=== PATIENT | female | born 1960 | race Caucasian/White ===

== ENCOUNTER 2025-06-03 15:21 | Outpatient (REF) | payer BC, SELFPAY ==
--- OUTSIDE RECORDS SUMMARY | 2024-09-16 09:00 | XMS_ITS ---
Author Organization [facility] Address [address] [place] [address] Care Team Providers Care Preschool Assistant Teacher Name Role Phone Chilango Hamilton Primary Care Provider REASON FOR VISIT EST CARE, ANXIETY/DEPRESSION Encounters Encounter Location Date Provider Diagnosis [address] [place] [address] 2024 Chilango Hamilton Plan Of Treatment No Information Progress Notes * SOCORRO GONZALES ADOB:1960 (64 yo F)Acc No.[id number]:09/16/2024 Behavioral Health Patient: Inder SOCORRO CAMILO :?CATHIE CaroPDOB:1960???Age:63 Y???Sex: FemaleDate:09/16/2024Phone:[phone]:75190 FARIHA MOLINA [facility] Subjective: * Chief Complaints: * E ST CARE, ANXIETY/DEPRESSION * Electronic signature of RAPHAEL Caro on 06/03/2025 at 08:29 AM ESTSign off status: Pending * Provider: RAPHAEL Burgos Date: 09/16/2024 Generated for Printing/Faxing/eTransmitting on:?06/03/2025 08:29 AM EST
--- OUTSIDE RECORDS SUMMARY | 2025-05-20 07:30 | XMS_ITS | Encounter Summary ---
Author Organization [facility] Address [address] [place] [address] Care Team Providers Care Accounting Administrator Name Role Phone Franklyn Jacobo DO Primary Care Provider [phone] Reason for Visit * Rehabilitation - Outpatient (Routine) - AuthorizedSpecialtyDiagnoses / ProceduresReferred By ContactReferred To ContactPhysical Therapy Diagnoses Pain in right hip Pain in left hip Procedures [place] MANUAL THERAPY TQS REGIONS EACH 15 MINUTES Franklyn Jacobo DO [address] [place] [address] Phone: tel: fax: Maria Elena Borges, PT [address] [place] [address] Phone: tel: fax: Referral IDStatusReasonStart DateExpiration DateVisits RequestedVisits [id number] Consult and Treat / Encounter Details DateTypeDepartmentCare Team (Latest Contact Info)Amdttadhkdc25/19/2025 7:30 AM ESTEvaluation [facility] [address] [place] [address] Sourav Sharif, PT [address] [place] [address] Bilateral hip pain (Primary Dx); Lumbar radiculopathy Social History Tobacco UseTypesPacks/DayYears UsedDateSmoking Tobacco: NeverSmokeless Tobacco: NeverAlcohol UseStandard Drinks/WeekCommentsDefer0 (1 standard drink = 0.6 oz pure alcohol)CommentsUnknownSex and Gender InformationValueDate Recorded Sex Assigned at BirthNot on fileLegal FowEmsxpc88/15/2023 7:40 PM EDTGender IdentityNot on fileSexual OrientationNot on filedocumented as of this encounter Progress Notes * Sourav Huynh Kole, PT - 05/20/2025 7:30 AM EST Images from the original note were not included. Time In: 7:25 AM Time Out: 8:10 AM Supervised Time: 45 min Total Time: 45 min Evaluation Time: 15 min Visit Number: 07/09 through 07/18/25 (20 max) Chief Complaint: Bilateral hip pain 2. Lumbar radiculopathy Precautions: none per patient Subjective Mechanism of injury: Pt reports having bilateral hip pain (L > R) for a few months. Had some groin pain but is not as bad now. The left hip has been worse. Has pain that runs down their left leg. Legs started feeling like they would give out over the Summer. Pt is very active. History of low back pain. Ache and throbbing pain mostly. 1 fall in the pat year and hit elbow but no injury. Fell on ice Location of Symptoms: B hips Pain level: 5/10 average, 2/10 sitting What increases symptoms: walking, stairs, prolonged sitting What decreases symptoms: rest, Aleve Pain radiates: down left posterior LE Timing of pain: continuous Numbness/tingling: denied Imaging: There is moderate narrowing of the joint spaces of the hips, left greater than right with subcortical cystic change along the acetabular roof bilaterally. This is worse on the right compared to the prior exam. The bony ring of the pelvis is intact. No fracture or dislocation. Degenerative changes are noted in the lumbar spine and sacroiliac joints. Objective Lumbar AROM: flexion: WFL extension: minimal restriction with pain L side bend: minimal restriction R side bend: minimal restriction Muscle Strength: R knee extension: 4+/5 R knee flexion: 5/5 R hip flexion: 4/5 L knee extension: 4/5 L knee flexion: 4+/5 L hip flexion: 4/5 Palpation: tenderness of L4-L5 Joint Play: hypomobile L1-S1 Muscle length: B HS: minimal restriction Special Tests: -Manual lumbar traction: no change -leg length: equal -MICHAEL: positive bilaterally in hips Prior Level of Function: Ambulation: WFL Assistive Devices: none ADLs: independent Extracurricular Activities: very active Employment: Hospice INTERVENTIONS: X 30 minutes of performance, demonstration and education of exercises for HEP. Handout provided andreviewed with the patient. Exercises included in today's exercise grid PT Assessment: Therapy Diagnosis: Bilateral hip pain and lumbar radiculopathy Functional Limitations: LEFS: 48/80 Certified Wellness Program Coordinator Goals: The patient will achieve 5/5 B LE muscle strength in order to improve ability to perform ADLs and return to PLOF 2. Patient will demonstrate proper core stabilization and strength during STS, ambulation and bed mobility 3. The patient will have decreased average pain to 2/10 or less during functional activities 4. The patient will be fully compliant with their HEP Rehab Potential: Good Plan: Pt to be seen 1-2x per week for 4-6 weeks Treatment: Therex, manual therapy, Nuero re-ed, electrical stimulation, ice, heat I hereby deem this POC medically necessary. Please sign below and fax back to the number below. Physician Signature: Date: documented in this encounter Plan of Treatment DateTypeDepartmentCare Team (Latest Contact Info)Czoibnruzxv35/04/2025 4:00 PM ESTTreatment [facility] [address] [place] [address] Basilio Fried, MECHANICAL OPERATOR 06/10/2025 7:30 AM ESTTreatment [facility] [address] [place] [address] Basilio Fried, MECHANICAL OPERATOR 06/12/2025 8:00 AM ESTTreatment [facility] [address] [place] [address] Basilio Fried, MECHANICAL OPERATOR 06/17/2025 7:30 AM ESTTreatment [facility] [address] [place] [address] Sourav Sharif, PT [address] [place] [address] documented as of this encounter Visit Diagnoses Diagnosis Bilateral hip pain- Primary Pain in joint, pelvic region and thigh Lumbar radiculopathy Thoracic or lumbosacral neuritis or radiculitis, unspecified documented in this encounter Care Teams Team MemberRelationshipSpecialtyStart DateEnd Date Franklyn Jacobo DO [address] [place] [address] PCP - GeneralInternal Medicine03/24/25documented as of this encounter
--- OUTSIDE RECORDS SUMMARY | 2025-05-23 00:08 | XMS_ITS | Continuity of Care Document ---
Author Organization [facility] Address [address] [place] [address] Phone Care Team Providers Care Printing Technician Name Role Phone Franklyn Cadet DO Primary Care Provider Jacques Bustos II, MD Attending Provider Care Teams Patient Care Team Team Status: Active Member Role/Relationship Status Dates Franklyn Cadet DO Primary Care Provider Active Visit Care Team Team Status: Inactive Member Role/Relationship Status Dates Franklyn Cadet DO Primary Care Provider Active Start: May 22, 2025 End: May 22, 2025Robtray Bustos II, MDAttlamont ProviderActiveStart: May 22, 2025 End: May 22, 2025 Chief Complaint and Reason for Visit Chief Complaint Admit Date CONSULT DR CADET SHOBHA HIP PAIN WX May 22, 2025 8:52am Reason for Visit Admit Date Primary osteoarthritis of hips, bilatera l May 22, 2025 8:52am Allergies, Adverse Reactions, Alerts Allergen Type Severity Reaction Last Updated Verified Status No Known Allergies Allergy Unknown May 22, 2025 9:12amYesActive Social History Smoking Status Status Start Date End Date Date of Observa tion Never smoked tobacco (finding) May 22, 2025 9:13am Observation Status Observation Response Date of Response Legal Sex Female (finding) Sex Assigned At BirthFemaleApril 1960 Family History Relationship Condition Age at Onset Recorded Date/T tanesha father Fibrosis of lung Unknown fatherDeceasedUnknownmotherPulmonary hypertensionUnknownDementiaUnknown HypertensionUnknownpaternal grandmotherMalignant neoplasm of ovaryUnknown maternal grandmotherSuicideUnknownbrotherSuicideUnknownmaternal grandfather History of coronary artery bypass surgeryUnknown Problems Active Problems Problem Diagnosis/Recorded Date Onset Date Stat us Other fci (current) drug therapy May 22, 2025 9:56am Unknown Active Trochanteric bursitis, right hip March 12, 2025 8:01pm Unknown Active Primary osteoarthritis of right hip March 12 8:01pm Unknown Active Screening mammogram for breast cancer January 18, 2025 2:00pm Unknown Active Menopause January 19, 2025 8:42pm Unknown Activ e Primary osteoarthritis of hi ps, bilateral May 21, 2025 2:48pm Unknown Active Wellness examination January 18, 2025 2:00pm Unknown Active Osteoporosis without current pathological fracture May 22, 2025 9:56am Unknown Active Hip pain, bilateral January 19, 2025 8:50pm Unknown Active GERD (gastroesophageal reflux disease) March 28, 2024 12:20pm Unknown Active Chest pain January 19, 2025 8:45pm Unknown Activ e IBS (irritable bowel syndrome) March 28, 2024 12 :20pm Unknown Active Inactive/Resolved Problems Problem Diagnosis/Recorded Date Onset Date Stat us Right lower quadrant pain March 23, 2025 11:49am Unknown Resolved Acute appendicitis March 23, 2025 11:49am Unknow n Resolved Acute appendicitis March 23, 2025 2:29pm Unknown Resolved Medications Medication Status Dose Units Route Directions Qty Days Refills S tart Date Stop Date End Date Reason(s) Instructions Adherence Omeprazole 40 mg capsule,delayed release(DR/EC) Discon tinued 0 .ROUTE.CTLTILB291Rquejmy 2023 1:59pmJuly 2024 1:34pmTAKE 1 CAPSULE BY MOUTH EVERY DAY 30 MIN BEFORE BREAKFAST / TAKE ON AN EMPTY STOMACH Multivitamin TmwcjnUpweicgzmczn9OYDMTPfoacEyb 2020 11:00pmSeptember 2024 10:58amSulfamethoxazole-Trimethoprim 800-160 mg hlmekyXngylbdnftzz1VTWVK DailyMay 2020 11:00pmAugust 2020 5:52amAspirin 81 mg Tablet Hiqccweyckey61LMVFPchfzCko 2020 11:00pmSeptember 2024 10:58am Metronidazole (Flagyl) 375 mg GxxxutgNeokadytuoew786UFJNBuxoh dailyMay 2020 11:00pmAugust 2020 5:52amOmega-3 Fatty Acids OvbnkpdNukvcygksjdq2901 MGPODailyAugust 2020 11:00pmSeptember 2023 9:32amOxycodone- Acetaminophen (Percocet) 5-325 mg bklmrxOcipffohiprb4UASFXR8K as needed for pain 3070September 2024November 2024 9:12amAcute appendicitis Unspecified acute appendicitisOmeprazole 40 mg capsule,delayed release(DR/EC) Scfkupgrqczt99DMLDEitvs42852Wzuwpfofq 2023 11:00pmOctober 2023 1:59pmtake on an empty stomach, 30 minutes prior to bkfst Immunizations Immunization Event Date Not Given Reason Dose Number Customer Success Director Lot Number Reason(s) Given Vaccine Information Statement (VIS) Detail Administration Location COVID-19 mRNA-1273 (Moderna) June 27, 2021 COVID-19 mRNA, Comirnaty (Pfizer)October 09OVID-19 mRNA, Comirnaty (Pfizer)October 30Tap, unspecifiedMay 2020Td(adult) unspecified formulationApril 2003Tetanus, Diphtheria adult, 5 Lf pres free absOctober 2012Tetanus, Diphtheria, Pertussis (Tdap)November [id number] Vital Signs Vital Reading Result Reference Range Collection Date/Time Height 64 [in_i] May 22, 2025 9:02yvYofchw18.37 kgMay 22, 2025 9:10amBP Cmwdqbyr530 mm[Hg]100-140May 22, 2025 9:10amBP Hupltpgbh12 mm[Hg]60-100May 22, 2025 9:10amBMI (Body Mass Index)21.7 kg/c6GeuzdnjjMay 22, 2025 9:10am Advance Directives Advance Directive Response Recorded Date/ Time Advance Directives No August 2:40pm Insurance Providers Guarantor Seda Nathan Address [address] [address]Nfkvtqd Info.Home Phone: Coverage Status Update:2025 Payer Group Member ID Coverage Type Subscriber Relationship to Subscriber Effective Date Expiration Date [employer] RIVERA/PAT [facility] Id: [id number] A Keegan Id: [id number] [address] Home Phone: Email: [email or web address] Encounters Encounter Location(s) Arrival/Admit Date Discharge/Departure Date Discharge/Departure Disposition Provider(s) Departed Physician/ Provider Office Visit -[facility] May 22, 2025 8:52am May 22, 2025 9:54am Discharged to home care or self care (routine discharge) Amina Mendoza MD Recent Diagnosis Onset Date Admit Date Primary osteoarthritis of hips, bilateral Unknow n May 22, 2025 8:52am Assessments Diagnosis Onset Date Resolution Status Admit Date Primary osteoarthritis of hips, bilatera l acuteNov2024 8:52am Plan of Treatment Future Tests Future scheduled test information is unavailable Pending Tests Test Name Ordered Date Scheduled Date Nicotine Level May 22, 2025 10:30am CotinineNov2024 10:30am Future Visits Future appointment information is unavailable Future Procedures Procedure Name Ordered Date Scheduled Date Admit Status Order March 24, 2025 5:41am S eptember 2024 5:41am Post Anesthesia Tracer order March 23 11:59am March 23, 2025 12:00pm Discharge Order March 25, 2025 7:13am Sept ember 2024 7:13am Nicotine/Cotinine Blood May 22, 2025 9:55 am May 22, 2025 10:30am Future Medications Future medication information is unavailable Patient Instructions Instruction Admit Date Know your Meds March 23, 2025 5:15pm
--- OUTSIDE RECORDS SUMMARY | 2025-05-25 17:00 | XMS_ITS | Encounter Summary ---
Author Organization [facility] Address [address] [place] [address] Care Team Providers Care Ethyl Blender Name Role Phone Franklyn Jacobo DO Primary Care Provider [phone] Reason for Visit * Rehabilitation - Outpatient (Routine) - AuthorizedSpecialtyDiagnoses / ProceduresReferred By ContactReferred To ContactPhysical Therapy Diagnoses Pain in right hip Pain in left hip Procedures [place] MANUAL THERAPY TQS REGIONS EACH 15 MINUTES Franklyn Jacobo DO [address] [place] [address] Phone: tel: fax: Maria Elena Borges, PT [address] [place] [address] Phone: tel: fax: Referral IDStatusReasonStart DateExpiration DateVisits RequestedVisits [id number] Consult and Treat / Encounter Details DateTypeDepartmentCare Team (Latest Contact Info)Nwqzgmurzum25/24/2025 5:00 PM ESTTreatment [facility] [address] [place] [address] Basilio Fried PTA Bilateral hip pain (Primary Dx); Lumbar radiculopathy Social History Tobacco UseTypesPacks/DayYears UsedDateSmoking Tobacco: NeverSmokeless Tobacco: NeverAlcohol UseStandard Drinks/WeekCommentsDefer0 (1 standard drink = 0.6 oz pure alcohol)CommentsUnknownSex and Gender InformationValueDate Recorded Sex Assigned at BirthNot on fileLegal AuoYyertp25/15/2023 7:40 PM EDTGender IdentityNot on fileSexual OrientationNot on filedocumented as of this encounter Progress Notes * Basilio Fried, EMPLOYEE DEVELOPMENT MANAGER - 05/25/2025 5:00 PM EST Images from the original note were not included. Time In: 5:05 PM Time Out: 6:08 PM Supervised Time: 48 min Total Time: 63 min Visit Number: 08/09 through 07/18/25 (20 max) Chief Complaint: Bilateral [...] of Symptoms: B hips Pain level: 5/10 pain in L hip/groin, patient notes R hip does not bother her much. Patient notes she had an appointment with Dr Olmedo and they took an X- ray of L hip, Dr suggested hip replacement.Patient notes she is going to her PCP on Sunday. Patient has not decided yet on hip replacement. Imaging: There is moderate narrowing of the joint spaces of the hips, left greater than right with subcortical cystic change along the acetabular roof bilaterally. This is worse on the right compared to the prior exam. The bony ring of the pelvis is intact. No fracture or dislocation. Degenerative changes are noted in the lumbar spine and sacroiliac joints. INTERVENTIONS: X 20 minutes of therapeutic exercises per grid X 28 minutes of manual therapy: long axis hip distraction L, belted L hip mobs, passive stretching of L hip X 15 minutes MHP to L hip in R SL PT Assessment: Performed MT: long axis hip distraction L, belted L hip mobs, passive stretching L hip. Patient notes increased weakness noted in L hip flexors. Continued with exercises per grid. Patient notes slight relief with long axis distraction. Ended session with MHP to L hip in R SL. Patient notes MHP felt good . Assess patients response at next session. Plan: Pt to be seen 1-2x per week for 4-6 weeks Treatment: Therex, manual therapy, Nuero re-ed, electrical stimulation, ice, heat Cosigned by Maria Elena Borges, PT at 05/25/2025 6:50 PM EST documented in this encounter Plan of Treatment DateTypeDepartmentCare Team (Latest Contact Info)Qlbwmtwrtvy10/04/2025 4:00 PM ESTTreatment [facility] [address] [place] [address] Basilio Fried, EMPLOYEE DEVELOPMENT MANAGER 06/10/2025 7:30 AM ESTTreatment [facility] [address] [place] [address] Basilio Fried, EMPLOYEE DEVELOPMENT MANAGER 06/12/2025 8:00 AM ESTTreatment [facility] [address] [place] [address] Basilio Fried, EMPLOYEE DEVELOPMENT MANAGER 06/17/2025 7:30 AM ESTTreatment [facility] [address] [place] [address] Sourav Sharif, PT [address] [place] [address] documented as of this encounter Visit Diagnoses Diagnosis Bilateral hip pain- Primary Pain in joint, pelvic region and thigh Lumbar radiculopathy Thoracic or lumbosacral neuritis or radiculitis, unspecified documented in this encounter Care Teams Team MemberRelationshipSpecialtyStart DateEnd Date Franklyn Jacobo, [address] [place] [address] PCP - GeneralInternal Medicine03/24/25documented as of this encounter
--- OUTSIDE RECORDS SUMMARY | 2025-05-27 15:00 | XMS_ITS | Encounter Summary ---
Author Organization [facility] Address [address] [place] [address] Care Team Providers Care Stonecutter Name Role Phone Franklyn Jacobo DO Primary Care Provider [phone] Reason for Visit * Rehabilitation - Outpatient (Routine) - AuthorizedSpecialtyDiagnoses / ProceduresReferred By ContactReferred To ContactPhysical Therapy Diagnoses Pain in right hip Pain in left hip Procedures [place] MANUAL THERAPY TQS REGIONS EACH 15 MINUTES Franklyn Jacobo DO [address] [place] [address] Phone: tel: fax: Maria Elena Borges, PT [address] [place] [address] Phone: tel: fax: Referral IDStatusReasonStart DateExpiration DateVisits RequestedVisits [id number] Consult and Treat / Encounter Details DateTypeDepartmentCare Team (Latest Contact Info)Ilqnivquzhp21/26/2025 3:00 PM ESTTreatment [facility] [address] [place] [address] Basilio Fried PTA Bilateral hip pain (Primary Dx); Lumbar radiculopathy Social History Tobacco UseTypesPacks/DayYears UsedDateSmoking Tobacco: NeverSmokeless Tobacco: NeverAlcohol UseStandard Drinks/WeekCommentsDefer0 (1 standard drink = 0.6 oz pure alcohol)CommentsUnknownSex and Gender InformationValueDate Recorded Sex Assigned at BirthNot on fileLegal SvjJflqyf40/15/2023 7:40 PM EDTGender IdentityNot on fileSexual OrientationNot on filedocumented as of this encounter Progress Notes * Basilio Fried, TREE FELLER - 05/27/2025 3:00 PM EST Images from the original note were not included. Time In: 3:00 PM Time Out: 3:55 PM Supervised Time: 40 min Total Time: 55 min Visit Number: 09/06 through 07/18/25 (20 max) Chief Complaint: Bilateral [...] Location of Symptoms: B hips Pain level: 5-6/10 pain in L hip/groin, patient notes R hip does not bother her much. Patient notespain increased today. Patient notes she was in and out of her car all day. Imaging: There is moderate narrowing of the joint spaces of the hips, left greater than right with subcortical cystic change along the acetabular roof bilaterally. This is worse on the right compared to the prior exam. The bony ring of the pelvis is intact. No fracture or dislocation. Degenerative changes are noted in the lumbar spine and sacroiliac joints. INTERVENTIONS: X 15 minutes of therapeutic exercises per grid X 25 minutes of manual therapy: long axis hip distraction L, belted L hip mobs, passive stretching of L hip X 15 minutes MHP to L hip in R SL PT Assessment: 5-6/10 pain in L hip/groin, patient notes R hip does not bother her much. Patient notes pain increased today. Patient notes she was in and out of her car all day. Continued with exercises per grid. Patient notes pain with knee to chest exercise, attempted with a ball with better tolerance. Performed MT: long axis hip distraction L, belted L hip mobs, passive stretching of L hip. Ended session with MHP to L hip in R SL. Patient notes feeling good post session. Assess patients response at next session. Plan: Pt to be seen 1-2x per week for 4-6 weeks Treatment: Therex, manual therapy, Nuero re-ed, electrical stimulation, ice, heat Cosigned by Sourav Sharif, PT at 05/27/2025 4:21 PM EST documented in this encounter Plan of Treatment DateTypeDepartmentCare Team (Latest Contact Info)Siebzsdzmqj87/04/2025 4:00 PM ESTTreatment [facility] [address] [place] [address] Basilio Fried, TREE FELLER 06/10/2025 7:30 AM ESTTreatment [facility] [address] [place] [address] Basilio Fried, TREE FELLER 06/12/2025 8:00 AM ESTTreatment [facility] [address] [place] [address] Basilio Fried, TREE FELLER 06/17/2025 7:30 AM ESTTreatment [facility] [address] [place] [address] Sourav Sharif, PT [address] [place] [address] documented as of this encounter Visit Diagnoses Diagnosis Bilateral hip pain- Primary Pain in joint, pelvic region and thigh Lumbar radiculopathy Thoracic or lumbosacral neuritis or radiculitis, unspecified documented in this encounter Care Teams Team MemberRelationshipSpecialtyStart DateEnd Date Franklyn Jacobo, [address] [place] [address] PCP - GeneralInternal Medicine03/24/25documented as of this encounter
--- OUTSIDE RECORDS SUMMARY | 2025-06-02 09:27 | XMS_ITS | Continuity of Care Document ---
Author Organization [facility] Address [address] [place] [address] Phone Care Team Providers Care Derrick Helper Name Role Phone Franklyn Jacobo DO Primary Care Provider Franklyn Jacobo DO Attending Provider [phone] Morena Hernandez DO Emergency Provider Emiliano Fairchild DO Admit Provider Emiliano Fairchild DO Attending Provider Lo Holloway CMA Attending Provider Shanona Jacques Engle II, MD Attending Provider [phone] Care Teams Patient Care Team Team Status: Active Member Role/Relationship Status Dates Franklyn Jacobo DO Primary Care Provider Active Visit Care Team Team Status: Inactive Member Role/Relationship Status Dates Franklyn Jacobo DO Primary Care Provider Active Start: March 12, 2025 End: March 12Lucila Garay ProviderActiveStart: March 12, 2025 End: March 12, 2025 Visit Care Team Team Status: Inactive Member Role/Relationship Status Dates Franklyn Jacobo DO Primary Care Provider Active Start: March 23, 2025 End: March 25Kaveh Rodriguez ProviderActiveStart: March 23, 2025 End: March 25, 2025Emiliano Fairchild DOAdmashley ProviderActiveStart: March 23, 2025 End: March 25, 2025Emiliano Fairchild DOAttending ProviderActiveStart: March 23, 2025 End: March 25, 2025 Visit Care Team Team Status: Active Member Role/Relationship Status Dates Franklyn Jacobo DO Primary Care Provider Active Start: March 27, 2025 Lo Holloway CMAAttending ProviderActiveStart: March 27, 2025 Visit Care Team Team Status: Inactive Member Role/Relationship Status Dates Franklyn Jacobo DO Primary Care Provider Active Start: May 06, 2025 End: May 06anh Jacobo DOAttending ProviderActiveStart: May 06, 2025 End: May 06, 2025 Visit Care Team Team Status: Inactive Member Role/Relationship Status Dates Franklyn Jacobo DO Primary Care Provider Active Start: May 22, 2025 End: May 22, 2025Jacques Bustos II, MDAttending ProviderActiveStart: May 22, 2025 End: May 22, 2025 Visit Care Team Team Status: Inactive Member Role/Relationship Status Dates Franklyn Jacobo DO Primary Care Provider Active Start: May 22, 2025 End: May 22, 2025Jacques Bustos II, MDAttending ProviderActiveStart: May 22, 2025 End: May 22, 2025 Patient Care Team Team Status: Inactive Member Role/Relationship Status Dates Franklyn Jacobo DO Primary Care Provider Active Start: June 02, 2025 End: June 02anh Jacobo DOAttending ProviderActiveStart: June 02, 2025 End: June 02, 2025 Chief Complaint and Reason for Visit Chief Complaint Admit Date bilateral hip pain March 12, 2025 9:12am rt lower abd pain March 23, 2025 5:15pm Amb Documentation March 27, 2025 9:37am M25.551 M25.552 May 06, 2025 1 0:24am CONSULT DR JACOBO SHOBHA HIP PAIN WX May 22, 2025 8:52am M16.0 Z79.89 M81.0 May 22, 2025 8:59am presurgical clearance June 02, 2025 1:55pm Reason for Visit Admit Date Hip pain, bilateral March 12, 2025 9:12am Primary osteoarthritis of right hip Sept ember 2024 9:12am Trochanteric bursitis, right hip Septemb er 2024 9:12am Acute appendicitis March 23, 2025 5:15pm Right lower quadrant pain March 5:15pm Primary osteoarthritis of hips, bilatera l May 22, 2025 8:52am Allergies, Adverse Reactions, Alerts Allergen Type Severity Reaction Last Updated Verified Status No Known Allergies Allergy Unknown June 02, 2025 1:56pmYesActive Social History Smoking Status Status Start Date [...] Problems Problem Diagnosis/Recorded Date Onset Date Stat Other fpc (current) drug therapy May 22, 2025 9:56am [...] Problems Problem Diagnosis/Recorded Date Onset Date Stat Right lower quadrant pain March 23, 2025 11:49am Unknown Resolved Acute appendicitis March 23, 2025 11:49am Unknow n Resolved Acute appendicitis March 23, 2025 2:29pm Unknown Resolved Medications Medication Status Dose Units Route Directions Qty Days Refills S tart Date Stop Date End Date Reason(s) Instructions Adherence Omeprazole 40 mg capsule,delayed release(DR/EC) Discon tinued 0 .ROUTE.LFMDMGD659Stwvlgj 2023 1:59pmJuly 2024 1:34pmTAKE 1 CAPSULE BY MOUTH EVERY DAY 30 MIN BEFORE BREAKFAST / TAKE ON AN EMPTY STOMACH Multivitamin CuboeuZpcyoxdarqol6INFAUBaygaLqs 2020 11:00pmSeptember 2024 10:58amSulfamethoxazole-Trimethoprim 800-160 mg paqqlcHrxyolqdugcm8KBDHP DailyMay 2020 11:00pmAugust 2020 5:52amAspirin 81 mg Tablet Thqdeeqiontf31SMRYMcisrVzf 31st, 2021 11:00pmSeptember 2024 10:58am Metronidazole (Flagyl) 375 mg WrairihXvanplozyaia368YLBZXyfdt dailyy 2020 11:00pmAugust 2020 5:52amOmega-3 Fatty Acids BrzksedUdydxpyhfnju3599 MGPODailyAugust 2020 11:00pmSeptember 2023 9:32amOxycodone- Acetaminophen (Percocet) 5-325 mg ihqgnrYpjvbsqusiqb1NFVETQ4C as needed for pain 3070September 2024November 2024 9:12amAcute appendicitis Unspecified acute appendicitisOmeprazole 40 mg capsule,delayed release(DR/EC) Yomtljkytwey04CRRXGcbvr06679Dkwekaydu 26th, 2024 11:00pmOctober 2023 1:59pmtake on an empty stomach, 30 minutes prior to bkfstNo Name (No Known Home Meds)ActiveDeavenir [facility] 20[facility] 12:00am Immunizations Immunization Event Date Not Given Reason Dose Number Production Sorter Lot Number Reason(s) Given Vaccine Information Statement (VIS) Detail Administration Location COVID-19 mRNA-1273 (Moderna) June 27, 2021 COVID-19 mRNAMira (Pfizer)October 09OVID-19 mRNAMira (Pfizer)October 30Tap, unspecifiedMay 2020Td(adult) unspecified formulationApril 2003Tetanus, Diphtheria adult, 5 Lf pres free absOctober 2012Tetanus, Diphtheria, Pertussis (Tdap)November [id number] Procedures Procedure Date Performed Status XR hips BI 4V adult May 06, 2025 10:36am c ompleted XR hip BI w PEL1V May 22, 2025 8:59am com pleted Nasal Screen MRSA/MSSA May 22, [address] abdomen pelvis w con March 23, 2025 9:0 7am completed OR Appendectomy Laparoscopic (Not Applicable) Se ptember 2024 3:30pm completed Relevant Diagnostic Tests and/or Laboratory Data Laboratory Results Test Collection Date/Time Result Date/Time Result Interpretation Reference Range Result Comment Performing Site Corrected White Blood Count March 25, 2025 4:10am March 25, 2025 4:44am 7.8 10*3/uL 3.8-11.6[facility] [id number] [address] [facility] 34718Rbvlkmaoazt WBC CountSeptember 2024 4:10amSeptember 2024 4:44am7.8 10*3/uL3.8-11.6[facility] [id number] [address] [facility] 24042Ijo Blood CountSeptember 2024 4:10amSeptember 2024 4:44am3.36 10*6/uLBelow low normal3.60-5.00[facility] [id number] [address] [facility] 85324ItdujfoklfOzcpfdhdr 2024 4:10amSeptember 2024 4:44am10.7 g/dLBelow low skuavl47.8-15.4[facility] [id number] [address] [facility] 72763QrdtmgfwkeMgxupjgg 2024 10:30amNovember 2024 11:29am12.9 g/dL11.8-15.4[facility] [id number] [address] [facility] 30168HcaicawackXzetxuzzq 2024 4:10amSeptember 2024 4:44am31.5 %Below low evvmol97.0-46.4[facility] [id number] [address] [facility] 26770Rkaa Corpuscular VolumeSeptember 2024 4:10amSeptember 2024 4:44am93.9 tN09-604XuehhetogEast [facility] [id number] [address] [facility] 50241Oeon Corpuscular HemoglobinSeptember 2024 4:10amSeptember 2024 4:44am31.9 pg24.7-34.3FF[facility] [id number] [address] [facility] 08190Tfpq Corpuscular Hemoglobin ConcentSeptember 2024 4:10am March 25, 2025 4:44am34.0 g/dL32.0-35.0[facility] [id number] [address] [facility] 60059Iog Cell Distribution WidthSeptember 2024 4:10amSeptember 2024 4:44am13.4 %11.9-15.3[facility] [id number] [address] [facility] 49029Nbwlgywq CountSeptember 2024 4:10amSeptember 2024 4:19qf724 10*3/xN958-673JebhwbqqdEast [facility] [id number] [address] [facility] 35592Baju Platelet VolumeSeptember 2024 4:10amSeptember 2024 4:44am8.4 fL6.3-10.7FF[facility] [id number] [address] [facility] 05975Pyjjhbhk Distribution WidthSeptember 2024 9:24amSeptember 2024 9:40am18.76 %0.00-20.00[facility] [id number] [address] [place] [address] 42725Lpyfpqqwnaq (%) (Auto)March 25, 2025 4:10amSeptember 2024 4:44am69.9 %.[facility] [id number] [address] [facility] 67725Wanjiafwpeh (%) (Auto)March 25, 2025 4:10a2024 4:44am21.4 %.[facility] [id number] [address] [facility] 04692Hwnqsygmj (%) (Auto)March 25, 2025 4:10a2024 4:44am7.9 %.[facility] [id number] [address] [facility] 15885Apwfpwxzxhf (%) (Auto)March 25, 2025 4:10a2024 4:44am0.5 %.[facility] [id number] [address] [facility] 02711Zgycnybus (%) (Auto)March 25, 2025 4:10a2024 4:44am0.3 %.[facility] [id number] [address] [facility] 88481Sbscubzbq RBC Relative Count (auto)March 25, 2025 4:10am March 25, 2025 4:44am0.1 /100{WBC}0-0.5[facility] [id number] [address] [facility] 62929Gxhstagcvcw # (Auto)March 25, 2025 4:10a2024 4:44am5.4 10*3/uL1.8-7.7[facility] [id number] [address] [facility] 32488Wigyiizkdjb # (Auto)March 25, 2025 4:10a2024 4:44am1.7 10*3/uL1.00-4.8[facility] [id number] [address] [facility] 87246Ozampkhfk # (Auto)March 25, 2025 4:10a2024 4:44am0.6 10*3/uL0.0-0.8[facility] [id number] [address] [facility] 23712Hwfegukuskc # (Auto)March 25, 2025 4:10a2024 4:44am0.0 10*3/uL0.0-0.45[facility] [id number] [address] [facility] 80489Xaqattrzi # (Auto)March 25, 2025 4:10amSeptember 2024 4:44am0.0 10*3/uL0.0-0.2[facility] [id number] [address] [facility] 34406Ohvqp ColorSeptember 2024 10:48amSeptember 2024 11:08amLight-yellowYellowEast [facility] Regional Hospital [facility]tr [id number] [address] [facility] 49199Mfdxi AppearanceSeptember 2024 10:48amSeptember 2024 11:08amCloudyAbnormal (applies to non-numeric results)ClearEast [facility]tr [id number] [address] [facility] 28112Ehqln Specific GravitySeptember 2024 10:48amSeptember 2024 11:08am1.042Above high normal1.001-1.030[facility] [id number] [address] [facility] 34919Dqqks pHSeptember 2024 10:48amSeptember 2024 11:08am7.05.0-9.0[facility] [id number] [address] [facility] 78815Stnhm Leukocyte EsteraseSeptember 2024 10:48amSeptember 2024 11:08amNegativeNegativeEast [facility] [id number] [address] [facility] 24766Xqfxc NitriteSeptember 2024 10:48amSeptember 2024 11:08amNegativeNegativeEast [facility] [id number] [address] [facility] 67410Omoun ProteinSeptember 2024 10:48amSeptember 2024 11:08amNegative mg/dLNegativeEast [facility] [id number] [address] [facility] 71241Scxlb Glucose (UA)March 23, 2025 10:48amSeptember 2024 11:08amNormal mg/dLNormWright-[facility] [id number] [address] [facility] 80363Szcgb KetonesSeptember 2024 10:48amSeptember 2024 11:08am1+Above high normalNegKindred [facility] [id number] [address] [facility] 85230Hvedr UrobilinogenSeptember 2024 10:48amSeptember 2024 11:08amNormal mg/dLNormWright-Patterson [facility] [id number] [address] [facility] 20772Zywsr BilirubinSeptember 2024 10:48amSeptember 2024 11:08amNegativeNegativeEast [facility] [id number] [address] [facility] 09294Osnfr Occult BloodSeptember 2024 10:48amSeptember 2024 11:08amNegativeNegativeEast [facility] [id number] [address] [facility] 94576Obytd RBCSeptember 2024 10:48amSeptember 2024 11:32iv0-6 [HPF]0-4[facility] [id number] [address] [facility] 16950Vxtcf WBCSeptember 2024 10:48amSeptember 2024 11:22ua1-3 [HPF]0-4[facility] [id number] [address] [facility] 73965Kbnqv Squamous Epithelial CellsSeptember 2024 10:48am Nitza 2024 11:29amN/AFF[facility] [id number] [address] [facility] 00662Mxvqb Amorphous CrystalsSeptember 2024 10:48amSeptember 2024 11:29am2+ [HPF][facility] [id number] [address] [facility] 80640Elypl BacteriaSeptember 2024 10:48amSeptember 2024 11:29amNone seen [HPF]None SeenEast [facility] Regional Hospital Ctr [id number] [address] [facility] 24201Jmxpb Hyaline CastsSeptember 2024 10:48amSeptember 2024 11:29amNone [LPF]0-8[facility] [id number] [address] [facility] 89470Ddrjf MucusSeptember 2024 10:48amSeptember 2024 11:29amRare [LPF][facility] [id number] [address] [facility] 91009Yxxesrg LevelSeptember 2024 9:24amSeptember 2024 10:26xt212 mg/dLAbove high dxkmat29-721IOW recommended reference rangeRandom Glucose Reference Range is dependent on time and content of last meal. Glucose of more than 200 mg/dL in a nonstressed, ambulatory subject supports the diagnosisof Diabetes Mellitus.[facility] [id number] [address] [facility] 41495Xmkfp Urea NitrogenSeptember 2024 9:24amSeptember 2024 10:04am10 mg/dL7-25[facility] [id number] [address] [facility] 76398KjwdosavthFffctxwcj 2024 9:24amSeptember 2024 10:04am0.70 mg/dL0.60-1.20[facility] [id number] [address] [facility] 44416Myazzaplp GFR (CKD-EPI)March 23, 2025 9:24amSeptember 2024 10:04am> 60.0 mL/MinEast [facility] Hospital Ctr [id number] [address] [facility] 23949Iuifdr LevelSeptember 2024 9:24amSeptember 2024 10:21ny059 mmol/LBelow low -380LvcpwuboaEast [facility] Regional Hospital [facility] [id number] [address] [facility] 67103Zkppzsmrr LevelSeptember 2024 9:24amSeptember 2024 10:04am4.0 mmol/L3.5-5.1[facility] [id number] [address] [facility] 32099Ulltriqf LevelSeptember 2024 9:24amSeptember 2024 10:20gr562 mmol/U31-195ChfxdjsbwEast [facility] [id number] [address] [facility] 78467Hlwmau Dioxide LevelSeptember 2024 9:24amSeptember 2024 10:04am27.4 mmol/L21.0-31.0[facility] [id number] [address] [facility] 07999Seydk GapSeptember 2024 9:24amSeptember 2024 10:04am9.6 mEq/L6.0-15.0[facility] [id number] [address] [facility] 96670Yfxkvcr LevelSeptember 2024 9:24amSeptember 2024 10:04am8.9 mg/dL8.6-10.3[facility] [id number] [address] [facility] 29859Nposi ProteinSeptember 2024 9:24amSeptember 2024 10:04am7.2 g/dL6.4-8.9[facility] [id number] [address] [facility] 40029NtusousQerwyiqpl 2024 9:24amSeptember 2024 10:04am 4.3 g/dL3.5-5.7[facility] [id number] [address] [facility] 20315CgnujvsXtvxwoir 2024 10:30amNovember 2024 11:46am 4.7 g/dL3.5-5.7[facility] [id number] [address] [facility] 14331QrdkwrvsEpdpclnkm 2024 9:24amSeptember 2024 10:04am 2.9 g/dLEast [facility] Regional Hospital Ctr [id number] [address] [facility] 19772Ehbhssy/Globulin RatioSeptember 2024 9:24amSeptember 2024 10:04am1.5[facility] [id number] [address] [facility] 73034Ydisd BilirubinSeptember 2024 9:24amSeptember 2024 10:04am1.5 mg/dLAbove high normal0.3-1.0Samples from patients who have taken Naproxen have shown spurious elevation in Total Bilirubin levels. A metabolite of Naproxen, O-desmethylnaproxen, has been shown to interfere with the Jenkatelynnik-Grojanelle method for measuring Total Bilirubin.[facility] [id number] [address] [facility] 26089Eugsugild Amino Transf (AST/SGOT)March 23, 2025 9:24am March 23, 2025 10:04am22 U/E31-11ZhsnfqdzjEast [facility] [id number] [address] [facility] 65042Xmqbpss Aminotransferase (ALT/SGPT)March 23, 2025 9:24am March 23, 2025 10:04am16 U/L7-52[facility] [id number] [address] [facility] 53009Aomweygp PhosphataseSeptember 2024 9:24amSeptember 2024 10:04am64 U/P00-668YxufnywjsEast [facility] Hospital [facility] [id number] [address] [facility] 22799YbuxsmGcwansoyp 2024 9:24amSeptember 2024 10:04am 8.0 U/LBelow low ugkzjo94.0-82.0[facility] [id number] [address] [facility] 47107Amtews Acid LevelSeptember 2024 9:24amSeptember 2024 9:50am0.5 mmol/L0.5-1.9Lactic Acid reference range has been updated to 0.5 ??? 1.9 mmol/L and the critical range of 2.0 orgreater.[facility] [id number] [address] [facility] 1870305-Qnpexvh Vitamin D TotalNov2024 10:30amNovember 2024 12:14pm33.6 ng/qF52-249PVLMTZE D STATUS 25(OH)VITAMIN D RANGE (ng/mL) Deficient <20 Insufficient 20 to <62Lrioqnucfo56 to 100Reference: Jcarlos MF,Sandor NC, Sam SU, et al. Evaluation,treatment, and prevention of vitamin D deficiency; an Endocrine Society clinical practice guideline. JCEM. 2010; 96(7):1911-30.[facility] [id number] [address] [facility] 79224Gegeqvlm Creatinine Clearance (ChemSept2024 9:24am March 23, 2025 10:04am65.54[facility] [id number] [address] [facility] 88172Lwdeibhlng R8oGyfvmhbtMay 22, 2025 10:30amNove2024 11:43am5.7 %Above high normal4.3-5.6Increased risk for diabetes: 5.7 - 6.4diabetes: >6.4glycemic control for adults with diabetes: <7.0[facility] [id number] [address] [facility] 32463Qcziqzxwt Average GlucoseMay 22, 2025 10:30amNove2024 11:58lu294 mg/dLEast [facility] Regional Hospital Ctr [id number] [address] [facility] 90377Cgmoccvw LevelMay 22, 2025 10:30amNovemb2024 12:08pm<1.0 ng/mL.This test was developed and its performance characteristicsdetermined by [employer] [employer]. It has not been cleared orapproved by the Food and Drug Administration.Nicotine levels greater than 2.0 are consistent with theuse of tobacco or tobacco cessation products.[facility] CotinineMay 22, 2025 10:30amNovember 2024 12:08pm<1.0 ng/mL.This test was developed and its performance characteristicsdetermined by [facility] [employer]. It has not been cleared orapproved by the Food and Drug Administration.Cotinine levels greater than 20.0 are consistent with theuse of tobacco or tobacco cessation products.Performed at: [address] [id number] Director: Shabnam Romo MD, Phone: [phone] [facility] Microbiology Results Procedure Source Result Collection Date/Time Result Date/Time Result Comment Performing Site Nasal Screen MRSA/MSSA Nasal May 22, 2025 10:30amNovember 2024 3:[address] [facility] [id number] [address] [place], [place] [address] Diagnostic Imaging Reports Author Bobby River [facility] CenterAuthoredSeptember 2024 11:09amReport Dictated Date/TimeDictated ByStatusRadiology ReportSeptember 2024 11:09am Bobby River II MDcompleteDelaware [facility] [place] [address] [place] [address] CT Scan Report Signed Patient: Seda Nathan MR#: [id number] : 1960 Acct:[id number] Age/Sex: 64 / F ADM Date: 5 Loc: ER Room: Type: [facility] ER Attending Dr: Copies to: Morena Hernandez DO~ Ordering Provider: Morena Hernandez DO Date of Service: 03/23/25 CT/CT abdomen pelvis w con: RLQ abd pain CT abdomen pelvis w con 03/23/2025 10:56 AM SIGNS AND SYMPTOMS: RLQ abd pain, nausea, fever TECHNIQUE: Multidetector ct axial images of the abdomen and pelvis were obtained with IV contrast. Multiplanar reformats were performed and reviewed to further define anatomy and possible pathology. CT was performed with one or more of the following dose reduction techniques: Automated exposure control, adjustment of the mA and/or kV according to patient size, or use of iterative reconstruction technique. COMPARISON: None. FINDINGS: Lower Chest: There is scarring at the left lung base. ABDOMEN: Liver: Within normal limits. Bile Ducts: Normal caliber. Gallbladder: No calcified gallstones. Normal caliber wall. Pancreas: Within normal limits. Spleen: Within normal limits. Adrenals: Within normal limits. Kidneys: Within normal limits. Pelvis: Reproductive Organs: No pelvic masses. Ureters: Within normal limits. Bladder: Within normal limits. Bowel: There is a dilated appendix superiorly seen measuring 1.5 cm in diameter with surrounding edema and an accompanying hyperattenuating appendicolith. Mesenteric Lymph Nodes: No enlarged mesenteric lymph nodes. Peritoneum: No ascites or free air, no fluid collection. Vessels: within normal limits Retroperitoneum: Within normal limits. Abdominal Wall: Within normal limits. Bones: Degenerative changes are noted in the lumbar spine, greatest at L5-S1. Degenerative changes are noted in the hips and sacroiliac joints. CT/CT abdomen pelvis w con IMPRESSION: Findings are consistent with acute appendicitis. No evidence of perforation or abscess formation. A large amount of edema surrounds the appendix however. Additional chronic appearing findings are noted as above. Impression dictated by: Bobby River M.D. 03/23/2025 11:17 AM Dictation Location: [facility]-- Transcribed By: [facility] 03/23/25 1117 Dictated By: Bobby River II, MD 03/23/25 1109 Signed By: <Electronically signed by Bobby River II, MD in OV> 03/23/25 1117 Author Bobby River [facility] CenterAuthoredHealthsouth [facility] 2024 3:32pmReportDictated Date/TimeDictated ByStatusRadiology ReportKindred Hospital - Greensboro2024 3:32pmMamoises River II [facility] HollisompPremier Health [facility] [place] [address] [place] [address] XRay Report Signed Patient: Seda Nathan MR#: [id number] : 1960 Acct:[id number] Age/Sex: 64 / F ADM Date: 5 Loc: XD Room: Type: [facility] Attending Dr: Franklyn Jacobo DO Copies to: Franklyn Jacobo DO~ Ordering Provider: Franklyn Jacobo DO Date of Service: 05/06/25 XR/XR hips BI 4V adult: M25.551,M25.552 XR hips BI 4V adult 05/06/2025 10:49 AM SIGNS AND SYMPTOMS: Bilateral hip pain, low back pain PROTOCOL: 4 views of the bilateral hips COMPARISON: 06/03/2021 FINDINGS: There is moderate narrowing of the joint spaces of the hips, left greater than right with subcortical cystic change along the acetabular roof bilaterally. This is worse on the right compared to the prior exam. The bony ring of the pelvis is intact. No fracture or dislocation. Degenerative changes are noted in the lumbar spine and sacroiliac joints. XR/XR hips BI 4V adult IMPRESSION: Worsening degenerative changes in the right hip. Similar degenerative changes are noted in the sacroiliac joints, left hip, and lower lumbar spine. No fracture or dislocation. Impression dictated by: Bobby River M.D. 05/06/2025 3:33 PM Dictation Location: [place] [address] Transcribed By: [facility] 05/06/25 1533 Dictated By: Bobby River II, MD 05/06/25 1532 Signed By: <Electronically signed by Bobby River II, MD in OV> 05/06/25 1533 Author Jayatn Carvalho [facility] CenterAuthoredMay 22, 2025 11:22amReport Dictated Date/TimeDictated ByStatusRadiology ReportMay 22, 2025 11:22am Jayant Carvalho Jr DOcompPremier Health [facility] [address] [place] [address] XRay Report Signed Patient: Seda Nathan MR#: [id number] : 1960 Acct:[id number] Age/Sex: 64 / F ADM Date: 5 Loc: [facility] Room: Type: [facility] Attending Dr: Jacques Bustos II, MD Copies to: Jacques Bustos MD~ Ordering Provider: Jacques Bustos MD Date of Service: 05/22/25 XR/XR hip BI w PEL1V: M16.0 - Bilateral primary osteoarthritis of hip BILATERAL HIP - 2 views each: CLINICAL HISTORY: Bilateral hip pain since January. COMPARISON: Hip series 05/06/2025 FINDINGS: Moderate left and mild right degenerative changes of the hips without acute bony process. Findings are similar to the prior study. Additional degenerative changes are seen involving the visualized lower lumbar spine, SI joints and pubic symphysis. XR/XR hip BI w PEL1V IMPRESSION: MODERATE LEFT AND MILD RIGHT DEGENERATIVE CHANGES OF THE HIPS SIMILAR TO THE PRIOR STUDY. NO ACUTE BONY PROCESS.. Impression dictated by: Jayant Carvalho Jr., D.O. 05/22/2025 11:24 AM Dictation Location: [facility]--22 Transcribed By: MITCHELL 05/22/25 1124 Dictated By: Jayant Carvalho Jr, DO 05/22/25 1122 Signed By: <Electronically signed by Jayant Carvalho Jr, DO in OV> 05/22/25 1124 Vital Signs Vital Reading Result Reference Range Collection Date/Time Height 64 [in_i] March 12, 2025 8:61rbDazdvm74.84 kgSept2024 8:18amHeart Rate71 /mxr01-199Aqrdfxupj 11th, 2025 8:18amRespiratory rate12 /ixe73-97Iutmphckz 11th, 2025 8:18amBP Zizitqbt261 mm[Hg]100-140Sept2024 8:18amBP Dystnacvk00 mm[Hg]60-100Sept2024 8:18amBMI (Body Mass Index)21.1 kg/b4Fqzmaxjzc2024 8:23czPvqmbe67 [in_i]March 23, 2025 12:08pm Yvhpse83.30 kgSept2024 4:26amBody Oqmnidzxkcc71.6 [degF]97.6-99.0 March 25, 2025 10:46amHeart Rate65 /vgv31-769MfpciqtkkMarch 25, 2025 10:46am Respiratory rate18 /saa73-33Jemxfltzy 24th, 2025 10:46amOxygen saturation by Pulse %95-100Sept2024 10:46amBP Qnloqitb232 mm[Hg]100-140 March 25, 2025 10:46amBP Rorvbzhbn13 mm[Hg]60-100Sept2024 10:46amInhaled oxygen flow rate8 L/minSept2024 3:75dxXgnxok44 [in_i] May 22, 2025 9:20agVxjyxs06.37 kgNov2024 9:10amBP Qaeowcqi992 mm[Hg]100-140May 22, 2025 9:10amBP Nbdjegdpk03 mm[Hg]60-100May 22, 2025 9:10amBMI (Body Mass Index)21.7 kg/o6Ssqubgqh 21st, 2025 9:10amHeight 64 [in_i]June 02, 2025 2:81dnBazepj10.47 kgDecemb2024 2:01pmHeart Rate80 /gta02-508Idihmukn 2nd, 2025 2:01pmRespiratory rate12 /kng37-14Kdvrpsfz 2nd, 2025 2:01pmBP Ehiomjaq744 mm[Hg]100-140Decemb2024 2:01pmBP Gfnykftmp28 mm[Hg]60-100Decemb2024 2:01pmBMI (Body Mass Index)22.5 kg/m2 June 02, 2025 2:01pm Advance Directives Advance Directive Response Recorded Date/ Time Advance Directives No August 2:40pm Insurance Providers Guarantor Seda Nathan Address [address] [address]Zoxtgag Info.Home Phone: Coverage Status Update:2025 Payer Group Member ID Coverage Type Subscriber Relationship to Subscriber Effective Date Expiration Date [employer] RIVERA/PAT [facility] Id: [id number] A Keegan Id: [id number] [address] [address] Home Phone: Email: [email or web address] Encounters Encounter Location(s) Arrival/Admit Date Discharge/Departure Date Discharge/Departure Disposition Provider(s) Departed Physician/ Provider Office Visit -[facility] March 12, 2025 9:12am March 12, 2025 10:01am Discharged to home care or self care (routine discharge) Franklyn Jacobo DO Discharged Inpatient -[address] [place] [address] March 23, 2025 5:15pm March 25, 2025 1:10pm Discharged to home care or self care (routine discharge) Emiliano Fairchild DO Non-patient / Non-visit -[facility] 2024 9:37am Lo Holloway CMADeparted ClinicalL[facility], 2025 10:24amNovember 2024 10:25amDischarged to home care or self care (routine discharge)CORINE Pateleparted Physician/Provider [facility] 2024 8:52amNovember 2024 9:54amDischarged to home care or self care (routine discharge)Amina Mendoza MDDeparted Clinical-[facility] 2024 8:59amNoveer 2024 9:00am Discharged to home care or self care (routine discharge)Amina Mendoza MD Departed Physician/Provider [facility] 1:55pmDece2024 2:25pmDischarged to home care or self care (routine discharge)Franklyn Jacobo , DO Recent Diagnosis Onset Date Admit Date Hip pain, bilateral Unknown March 122024 9:12am Primary osteoarthritis of right hip Unknown March 12, 2025 9:12am Trochanteric bursitis, right hip Unknown March 12, 2025 9:12am Acute appendicitis Unknown March 5:15pm Right lower quadrant pain Unknown Sept2024 5:15pm Primary osteoarthritis of hips, bilateral Unknow n May 22, 2025 8:52am Functional Status Observation Response Date Recorded Dressing Patient at Baseline March 252024 12:00pm Eating Patient Not at Baseline [facility] 2024 12:00pm Bathing Patient Not at Baseline [facility] 2024 12:00pm Disability Status Patient at Baseline March 25, 2025 12:00pm Mental Status Observation Response Date Recorded Cognitive Status Patient at Baseline March 032024 12:00pm Cognitive/Mental Status Assessments Assessments Diagnosis Onset Date Resolution Status Admit Date Hip pain, bilateral acuteSept2024 9:12amPrimary osteoarthritis of right hipacute March 12, 2025 9:12amTrochanteric bursitis, right hipacuteSept2024 9:12amAcute appendicitisinactiveSept2024 5:15pmRight lower quadrant painresolvedSeptember 2024 5:15pmPrimary osteoarthritis of hips, bilateralacuteNovember 2024 8:52am Plan of Treatment Author Franklyn Jacobo [facility] CenterAuthoredSeptember 2024 8:03pmInstructed to avoid squatting or bending. Instructed to use ice/heat and Tylenol Instructed to take Aleve 440mg bid for next week Instructed/reviewed ROM/stretching exercises (handout supplied for home use) Initiate conservative treatment. Discussed further imaging if pain persists Discussed referral to PT as well as Orthopedics May be contributing. Instructed to use ice and Voltaren Gel Instructions on ROM/stretching exercises Future Tests Future scheduled test information is unavailable Pending Tests Pending diagnostic test information is unavailable Future Visits Future appointment information is unavailable Future Procedures Procedure Name Ordered Date Scheduled Date Admit Status Order March 24, 2025 5:41am S eptemb 2024 5:41am Post Anesthesia Tracer order March 23 11:59am March 23, 2025 12:00pm Discharge Order March 25, 2025 7:13am Sept ember 2024 7:13am Future Medications Future medication information is unavailable Patient Instructions Instruction Admit Date Know your Meds March 23, 2025 5:15pm Goals Acute Goals Author Authored Date Experience reduced anxiety * Identifies current stressors * Develops effective coping behaviors * [facility] 12:41pmRemain free of complications [facility] 2024 12:41pmUnderstand preop/postop care/sensations * Verbalizes understanding of surgical procedure * Verbalizes understanding of sensations following surgery * Verbalizes understanding of post-op treatment [facility] 2024 12:41pmReport pain at tolerable level * Uses pain scale appropriately * Identify options for pain control - Analgesics - Narcotics - Non-medication measuresMer[facility] 2024 12:41pmAbsence of imbalanced fluid volume s/s [facility] 2024 12:41pmAbsence of physical injury [facility] 2024 12:41pmAbsence of surgical site infection [facility] 2024 12:41pmExhibit optimal tissue perfusion * Exhibits adequate oxygenation and ventilation * Exhibits adequate cardiac output * Regains stable cardiac rhythm * Maintains optimal activity level * Maintains balanced intake and outputOhio[facility] 2024 12:41pmSkin integrity intact [facility] 2024 12:41pmAbsence of new skin breakdown [facility] 2024 12:41pmWound healing [facility] 2024 12:41pm
--- OUTSIDE RECORDS SUMMARY | 2025-06-02 16:00 | XMS_ITS | Encounter Summary ---
Author Organization [facility] Address [address] [place] [address] Care Team Providers Care Moisture Meter Operator Name Role Phone Franklyn Jacobo DO Primary Care Provider [phone] Reason for Visit * Rehabilitation - Outpatient (Routine) - AuthorizedSpecialtyDiagnoses / ProceduresReferred By ContactReferred To ContactPhysical Therapy Diagnoses Pain in right hip Pain in left hip Procedures VT MANUAL THERAPY TQS REGIONS EACH 15 MINUTES Franklyn Jacobo DO [address] [place] [address] Phone: tel: fax: Maria Elena Borges, PT [address] [place] [address] Phone: tel: fax: Referral IDStatusReasonStart DateExpiration DateVisits RequestedVisits [id number] Consult and Treat / Encounter Details DateTypeDepartmentCare Team (Latest Contact Info)Sgtlfvhpzvv77/02/2025 4:00 PM ESTTreatment [facility] [address] [place] [address] Sourav Sharif, PT [address] [place] [address] Bilateral hip pain (Primary Dx); Lumbar radiculopathy Social History Tobacco UseTypesPacks/DayYears UsedDateSmoking Tobacco: NeverSmokeless Tobacco: NeverAlcohol UseStandard Drinks/WeekCommentsDefer0 (1 standard drink = 0.6 oz pure alcohol)CommentsUnknownSex and Gender InformationValueDate Recorded Sex Assigned at BirthNot on fileLegal DozItkqas29/15/2023 7:40 PM EDTGender IdentityNot on fileSexual OrientationNot on filedocumented as of this encounter Progress Notes * Sourav Amina Kole, PT - 06/02/2025 4:00 PM EST Images from the original note were not included. Time In: 4:00 PM Time Out: 4:43 PM Supervised Time: 43 min Total Time: 43 min Visit Number: 10/07 through 07/18/25 (20 max) Chief Complaint: Bilateral [...] notes R hip does not bother her much Imaging: There is moderate narrowing of the joint spaces of the hips, left greater than right with subcortical cystic change along the acetabular roof bilaterally. This is worse on the right compared to the prior exam. The bony ring of the pelvis is intact. No fracture or dislocation. Degenerative changes are noted in the lumbar spine and sacroiliac joints. INTERVENTIONS: X 25 minutes of therapeutic exercises per grid X 18 minutes of manual therapy: long axis hip distraction L, L hip mobs, passive stretching of L hip PT Assessment: 5-6/10 pain in L hip/groin, patient notes R hip does not bother her much. Continued with flexion based exercises and core/hip strengthening. States seeing their doctor and was told they have bone on bone for the left hip. X-ray impression showed moderate narrowing in the hip. Would like to avoid surgery if possible. Continued with stretching of left hip. Assess response at next session and progress as able Plan: Pt to be seen 1-2x per week for 4-6 weeks Treatment: Therex, manual therapy, Nuero re-ed, electrical stimulation, ice, heat documented in this encounter Plan of Treatment DateTypeDepartmentCare Team (Latest Contact Info)Fbsjjnugxsv45/04/2025 4:00 PM ESTTreatment [facility] [address] [place] [address] Basilio Fried, [place] ADMINISTRATIVE LAW JUDGE 06/10/2025 7:30 AM ESTTreatment [facility] [address] [place] [address] Basilio Fried, [place] ADMINISTRATIVE LAW JUDGE 06/12/2025 8:00 AM ESTTreatment [facility] [address] [place] [address] Basilio Fried, [place] ADMINISTRATIVE LAW JUDGE 06/17/2025 7:30 AM ESTTreatment [facility] [address] [place] [address] Sourav Sharif, PT [address] [place] [address] documented as of this encounter Visit Diagnoses Diagnosis Bilateral hip pain- Primary Pain in joint, pelvic region and thigh Lumbar radiculopathy Thoracic or lumbosacral neuritis or radiculitis, unspecified documented in this encounter Care Teams Team MemberRelationshipSpecialtyStart DateEnd Date Franklyn Jacobo, [address] [place] [address] PCP - GeneralInternal Medicine03/24/25documented as of this encounter
--- OUTSIDE RECORDS SUMMARY | 2025-06-03 08:30 | XMS_ITS | Encounter Summary ---
Author Organization [facility] Address [address] [place] [address] Care Team Providers Care Engine Hostler Name Role Phone Franklyn Jacobo Primary Care Provider [phone] Reason for Visit * ReasonCommentsGynecologic Exam Encounter Details DateTypeDepartmentCare Team (Latest Contact Info)Ezpafloscov88/03/2025 8:30 AM ESTProcedure Visit [facility] [address] [address] Abeba Kaiser PA [address] [place], [facility] Well woman exam with routine gynecological exam; Breast cancer screening by mammogram; Encounter for osteoporosis screening in asymptomatic postmenopausal patient; Encounter for screening for osteoporosis; Hormone disorder Social History Tobacco UseTypesPacks/DayYears UsedDateSmoking Tobacco: NeverSmokeless Tobacco: NeverAlcohol UseStandard Drinks/WeekCommentsDefer0 (1 standard drink = 0.6 oz pure alcohol)CommentsUnknownSex and Gender InformationValueDate Recorded Sex Assigned at BirthNot on fileLegal BmfQlcvul96/15/2023 7:40 PM EDTGender IdentityNot on fileSexual OrientationNot on filedocumented as of this encounter Last Filed Vital Signs Vital SignReadingTime TakenCommentsBlood Fnyqahut494/7206/03/2025 8:51 AM EST Pulse--Temperature--Respiratory Rate--Oxygen Saturation--Inhaled Oxygen Concentration--Xjzyhb06.2 kg (126 lb)06/03/2025 8:51 AM ESTHeight--Body Mass Index21.6304/22/2025 10:29 AM EDTdocumented in this encounter Progress Notes * AUGUST Ann - 06/03/2025 8:30 AM EST Reason for Appointment: Patient ID: Seda Nathan is a 64 y.o. female who presents for Gynecologic Exam Patient presents today for Annual Exam. MEDICATIONS Current Outpatient Medications Medication Instructions ??? Multiple Vitamin (multivitamin) tablet 1 tablet, Daily ALLERGIES No Known Allergies PROBLEMS Active Ambulatory Problems Diagnosis Date Noted ??? Appendicitis, acute 04/22/2025 ??? Bilateral hip pain 05/20/2025 ??? Lumbar radiculopathy 05/20/2025 Resolved Ambulatory Problems Diagnosis Date Noted ??? No Resolved Ambulatory Problems Past Medical History: Diagnosis Date ??? Appendicitis ??? GERD (gastroesophageal reflux disease) ??? IBS (irritable bowel syndrome) ??? Menopause ??? Primary osteoarthritis ??? Trochanteric bursitis, right hip HISTORY PAST MEDICAL HISTORY SOCIAL HISTORY Past Medical History: Diagnosis Date ??? Appendicitis ??? GERD (gastroesophageal reflux disease) ??? IBS (irritable bowel syndrome) ??? Menopause ??? Primary osteoarthritis ??? Trochanteric bursitis, right hip Social History Tobacco Use ??? Smoking status: Never ??? Smokeless tobacco: Never Substance Use Topics ??? Alcohol use: Defer ??? Drug use: Defer FAMILY HISTORY Family History Problem Relation Name Age of Onset ??? Hypertension Mother ??? Pulmonary fibrosis Father SURGICAL HISTORY Past Surgical History: Procedure Laterality Date ??? APPENDECTOMY 03/23/2025 laparoscopic ??? COLONOSCOPY 2020 REVIEW OF SYSTEMS Review of Systems: Review of Systems Constitutional: Negative. HENT: Negative. Eyes: Negative. Respiratory: Negative. Cardiovascular: Negative. Gastrointestinal: Negative. Genitourinary: Negative. Musculoskeletal: Negative. Skin: Negative. Neurological: Negative. All other systems reviewed and are negative. Hematological: Negative. Endocrine: Negative. Allergic/Immunologic: Negative. OBJECTIVE Objective: Physical Exam Constitutional: Appearance: Normal appearance. She is well-developed. Genitourinary: Vulva and bladder normal. Right Adnexa: not tender and no mass present. Left Adnexa: not tender and no mass present. No cervical discharge. Uterus is not prolapsed. Pelvic floor neuro is intact. Breasts: Breasts are soft. Right: Normal. Left: Normal. HENT: Head: Normocephalic. Nose: Nose normal. Mouth/Throat: Mouth: Mucous membranes are moist. Cardiovascular: Rate and Rhythm: Normal rate and regular rhythm. Pulmonary: Effort: Pulmonary effort is normal. Breath sounds: Normal breath sounds. Abdominal: General: Bowel sounds are normal. There is no distension. Palpations: Abdomen is soft. Tenderness: There is no abdominal tenderness. There is no guarding or rebound. Musculoskeletal: General: No swelling. Normal range of motion. Cervical back: Normal range of motion. Right lower leg: No edema. Left lower leg: No edema. Neurological: General: No focal deficit present. Mental Status: She is alert and oriented to person, place, and time. Skin: General: Skin is warm and dry. Psychiatric: Mood and Affect: Mood normal. Behavior: Behavior normal. Vitals and nursing note reviewed. Exam conducted with a corrosion control specialist present. Vitals: Estimated body mass index is 20.6 kg/m?? as calculated from the following: Height as of 04/22/25: 5' 4 . Weight as of 04/22/25: 120 lb. BP: No LMP recorded. Assessment/Plan ICD-10-CM 1. Well woman exam with routine gynecological exam Z01.419 THIN PREP TIS PAP AND HR HPV DNA 2. Breast cancer screening by mammogram Z12.31 Bilateral screening mammogram Bilateral screening mammogram 3. Encounter for osteoporosis screening in asymptomatic postmenopausal patient Z13.820 DEXA bone density Z78.0 4. Encounter for screening for osteoporosis Z13.820 DEXA bone density Assessment/Plan Annual: Patient presents today for an annual exam. Patient states she is doing well and has no complaints. Pap was obtained without difficulty and patient given mammogram/Dexa scan order to have scheduled/obtained. Patient complains of aches and pains and feels she is thinning inside of vagina. Pt states when she wipes she tears and bleeds often. Pt desires to have her hormones checked she feels something is off. Hormone order of labs were given to pt to obtain. Estrace cream was prescribed due to the thinning/pain in vagina. Patient experiencing menopausal joint pain and vaginal dryness. We discussed HRT and will start on bijuva and also gave samples of imvexxy vaginal inserts. If patient prefers we will send imvexxy in place of estrace cream. Patient given hormone labs to obtain, we will follow up as needed Orders Placed This Encounter Procedures ??? Bilateral screening mammogram ??? DEXA bone density Follow Up: Patient is to return in one year for annual unless needed otherwise. Documented by Linn Hutson MA on behalf of: AUGUST Ann documented in this encounter Plan of Treatment DateTypeDepartmentCare Team (Latest Contact Info)Yeznejymbzu83/04/2025 4:00 PM ESTTreatment [facility] [address] [facility] [place] [address] Basilio Fried, MANAGER PROJECT MANAGEMENT 06/10/2025 7:30 AM ESTTreatment [facility] [address] [facility] [facility] [place] [address] Basilio Fried, MANAGER PROJECT MANAGEMENT 06/12/2025 8:00 AM ESTTreatment [facility] [address] [facility] [facility] [place] [address] Basilio Fried, MANAGER PROJECT MANAGEMENT 06/17/2025 7:30 AM ESTTreatment [facility] [address] [facility] [facility] [place] [address] Sourav Sharif, PT [address] [place] [address] NameTypePriorityAssociated DiagnosesOrder ScheduleTHIN PREP TIS PAP AND HR HPV DNAPathology and CytologyRoutine Well woman exam with routine gynecological exam Ordered: 06/03/2025EstradiolLabRoutine Hormone disorder Ordered: 06/03/2025EstroneLabRoutine Hormone disorder Ordered: 06/03/2025ortisol, freeLabRoutine Hormone disorder Expected: 06/03/2025 (Approximate), Expires: 06/03/2026DHEA-sulfateLabRoutine Hormone disorder Ordered: 06/03/2025Sex hormone binding globulinLabRoutine Hormone disorder Ordered: 06/03/2025Insulin, totalLabRoutine Hormone disorder Expected: 06/03/2025 (Approximate), Expires: 06/03/2026Serotonin serumLabRoutine Hormone disorder Expected: 06/03/2025 (Approximate), Expires: 06/03/2026TSHLabRoutine Hormone disorder Ordered: 06/03/2025T4, freeLabRoutine Hormone disorder Ordered: 06/03/2025T3, reverseLabRoutine Hormone disorder Ordered: 06/03/2025ProgesteroneLabRoutine Hormone disorder Ordered: 06/03/2025Vitamin D 1,25 dihydroxyLabRoutine Hormone disorder Ordered: 06/03/2025FerritinLabRoutine Hormone disorder Ordered: 06/03/2025T3, freeLabRoutine Hormone disorder Ordered: 06/03/2025ThyroglobulinLabRoutine Hormone disorder Expected: 06/03/2025 (Approximate), Expires: 06/03/2026Thyroglobulin AntibodyLab Routine Hormone disorder Expected: 06/03/2025 (Approximate), Expires: 06/03/2026Thyroid peroxidase antibodyLabRoutine Hormone disorder Ordered: 06/03/20255445V8GppFpemssr Hormone disorder Expected: 06/03/2025 (Approximate), Expires: 06/03/2026TESTOSTERONE, FREELab Routine Hormone disorder Ordered: 06/03/2025Testosterone, free, totalLabRoutine Hormone disorder Ordered: 06/03/2025Hemoglobin A8vLvhFspzete Hormone disorder Ordered: 06/03/2025Glucose, randomLabRoutine Hormone disorder Expected: 06/03/2025 (Approximate), Expires: 06/03/2026-peptideLabRoutine Hormone disorder Expected: 06/03/2025 (Approximate), Expires: 06/03/2026documented as of this encounter Visit Diagnoses Diagnosis Well woman exam with routine gynecological exam Routine gynecological examination Breast cancer screening by mammogram Encounter for osteoporosis screening in asymptomatic postmenopausal patient Encounter for screening for osteoporosis Hormone disorder Unspecified endocrine disorder documented in this encounter Care Teams Team MemberRelationshipSpecialtyStart DateEnd Date Franklyn Jacobo DO [address] [place] [address] PCP - GeneralInternal Medicine03/24/25documented as of this encounter
--- OUTSIDE RECORDS SUMMARY | 2025-06-03 15:26 | XMS_ITS | Encounter Summary ---
Author Organization [facility] Address [address] [place] [place] [address] Care Team Providers Care Data Virtualization Consultant Name Role Phone Franklyn Jacobo Primary Care Provider [phone] Encounter Details DateTypeDepartmentCare Team (Latest Contact Info)Trvyqyzheqd29/02/2025Travel Social History Tobacco UseTypesPacks/DayYears UsedDateSmoking Tobacco: NeverSmokeless Tobacco: NeverAlcohol UseStandard Drinks/WeekCommentsDefer0 (1 standard drink = 0.6 oz pure alcohol)CommentsUnknownSex and Gender InformationValueDate Recorded Sex Assigned at BirthNot on fileLegal OxqMghqhu96/15/2023 7:40 PM EDTGender IdentityNot on fileSexual OrientationNot on filedocumented as of this encounter Plan of Treatment DateTypeDepartmentCare Team (Latest Contact Info)Yhsvxbmihlb12/04/2025 4:00 PM ESTTreatment [facility] [address] [place] [address] Basilio Fried, COKE WHEELER 06/10/2025 7:30 AM ESTTreatment [facility] [address] [place] [address] Basilio Fried, COKE WHEELER 06/12/2025 8:00 AM ESTTreatment [facility] [address] [place] [address] Basilio Fried, COKE WHEELER 06/17/2025 7:30 AM ESTTreatment [facility] [address] [place] [address] Sourav Sharif, PT [address] [place] [address] documented as of this encounter Visit Diagnoses Not on filedocumented in this encounter Care Teams Team MemberRelationshipSpecialtyStart DateEnd Date Franklyn Jacobo DO [address] [place] [address] PCP - GeneralInternal Medicine03/24/25documented as of this encounter
--- OUTSIDE RECORDS SUMMARY | 2025-06-03 15:27 | XMS_ITS | Encounter Summary ---
Author Organization [facility] Address [address] [place] [address] Care Team Providers Care Public Health Educator Name Role Phone Franklyn Jacobo Primary Care Provider [phone] Encounter Details DateTypeDepartmentCare Team (Latest Contact Info)Hkuwgwzloct25/26/2025amboo flowsheet [facility] [address] [place] [address] Basilio Fried, VASCULAR PHYSICIAN Social History Tobacco UseTypesPacks/DayYears UsedDateSmoking Tobacco: NeverSmokeless Tobacco: NeverAlcohol UseStandard Drinks/WeekCommentsDefer0 (1 standard drink = 0.6 oz pure alcohol)CommentsUnknownSex and Gender InformationValueDate Recorded Sex Assigned at BirthNot on fileLegal GvnYwscsu75/15/2023 7:40 PM EDTGender IdentityNot on fileSexual OrientationNot on filedocumented as of this encounter Plan of Treatment DateTypeDepartmentCare Team (Latest Contact Info)Yqqhgtexbjq82/04/2025 4:00 PM ESTTreatment [facility] [address] [place] [address] Basilio Fried, VIRGINIE 06/10/2025 7:30 AM ESTTreatment [facility] [address] [place] [address] Basilio Fried, VIRGINIE 06/12/2025 8:00 AM ESTTreatment [facility] [address] [place] [address] Basilio Fried, VIRGINIE 06/17/2025 7:30 AM ESTTreatment [facility] [address] [facility] [place] [address] Sourav Sharif, PT [address] [facility] [place] [address] documented as of this encounter Visit Diagnoses Not on filedocumented in this encounter Care Teams Team MemberRelationshipSpecialtyStart DateEnd Date Franklyn Jacobo DO [address] [place] [address] PCP - GeneralInternal Medicine03/24/25documented as of this encounter
--- OUTSIDE RECORDS SUMMARY | 2025-06-03 15:27 | XMS_ITS | Patient Health Record ---
Author Organization [facility] Address [address] [place] [address] Care Team Providers Care Edge Drummer Name Role Phone Chilango Hamilton Primary Care Provider [phone] Ameya Gonzales Leila Wilson [phone] Allergies No Known Allergies Reason For Referral No Information Problems Problem Type SNOMED Code ICD Code Onset Dates Problem Status W/U Status Risk Notes Problem Episodic mood disorder ([id number]) E pisodic mood disorder (F39) Activeconfirmed Encounters Encounter Location Date Provider Diagnosis [facility] [address] [place] [address] 11/14/2024 Leila Gonzales [facility] [address] [facility] [place] [address]/21/2025Leila Gonzales Episodic mood disorder F39 Assessments Encounter Date Diagnosis (ICD Code) Assessment Notes Treatment Notes Treatment Clinical Notes Section Notes 11/19/2024 Episodic mood disorder (ICD-10 - F39) Based on DSM V, this patient meets the criteria for the diagnosis of: _ . Episodic Mood Disoder; differential of Major Depressive Disorder; bipolar disorder . Recommended treatment is: _ FDA approved medication for this age group include Selective Serotonin Reuptake Inhibitors (SSRI) and Selective Norepinephrine Reuptake Inhibitors (SNRI). Selective serotonin reuptake inhibitors? can cause nausea, headache, upset stomach, diarrhea, constipation, anxiety, irritability, and sexual dysfunction. . The patient declines treatment with mediaction today. Recommend therapy if desired. . The patient verbalizes understanding with all questions answered thoroughly and is in agreement with treatment plan. . Plan Of Treatment No Information Insurance Providers Payer Name Payer Address Payer Phone Subscriber Number Group Number Insured Name Patient Relationship to Insured Coverage Start Date Coverage End Date ANTHEM Primary [address] [place] [phone] [id number] SOCORRO GONZALES Self - patient is the insured 5
--- OUTSIDE RECORDS SUMMARY | 2025-06-03 15:27 | XMS_ITS | Encounter Summary ---
Author Organization [facility] Address [address] [place] [address] Care Team Providers Care Heel Seat Sander Name Role Phone Franklyn Jacobo Primary Care Provider [phone] Encounter Details DateTypeDepartmentCare Team (Latest Contact Info)Qivtgcywftw05/19/2025Travel Social History Tobacco UseTypesPacks/DayYears UsedDateSmoking Tobacco: NeverSmokeless Tobacco: NeverAlcohol UseStandard Drinks/WeekCommentsDefer0 (1 standard drink = 0.6 oz pure alcohol)CommentsUnknownSex and Gender InformationValueDate Recorded Sex Assigned at BirthNot on fileLegal BsgAlneyd69/15/2023 7:40 PM EDTGender IdentityNot on fileSexual OrientationNot on filedocumented as of this encounter Plan of Treatment DateTypeDepartmentCare Team (Latest Contact Info)Wtqlpbjizlz13/04/2025 4:00 PM ESTTreatment [facility] [address] [place] [address] Basilio Fried, CEMENT MASON 06/10/2025 7:30 AM ESTTreatment [facility] [address] [place] [address] Basilio Fried, CEMENT MASON 06/12/2025 8:00 AM ESTTreatment [facility] [address] [place] [address] Basilio Fried, CEMENT MASON 06/17/2025 7:30 AM ESTTreatment [facility] [address] [place] [address] Sourav Sharif, PT [address] [place] [address] documented as of this encounter Visit Diagnoses Not on filedocumented in this encounter Care Teams Team MemberRelationshipSpecialtyStart DateEnd Date Franklyn Jacobo DO [address] [place] [address] PCP - GeneralInternal Medicine03/24/25documented as of this encounter
--- OUTSIDE RECORDS SUMMARY | 2025-06-03 15:27 | XMS_ITS | Encounter Summary ---
Author Organization [facility] Address [address] [place] [address] Care Team Providers Care Air Traffic Control Operator Name Role Phone Franklyn Jacobo Primary Care Provider [phone] Encounter Details DateTypeDepartmentCare Team (Latest Contact Info)Ylbiccfrieg17/19/2025Plan of Care Documentation [facility] [address] [facility] [place] [address] Social History Tobacco UseTypesPacks/DayYears UsedDateSmoking Tobacco: NeverSmokeless Tobacco: NeverAlcohol UseStandard Drinks/WeekCommentsDefer0 (1 standard drink = 0.6 oz pure alcohol)CommentsUnknownSex and Gender InformationValueDate Recorded Sex Assigned at BirthNot on fileLegal HrzDnynzy70/15/2023 7:40 PM EDTGender IdentityNot on fileSexual OrientationNot on filedocumented as of this encounter Plan of Treatment DateTypeDepartmentCare Team (Latest Contact Info)Bpsjvtcjgtb59/04/2025 4:00 PM ESTTreatment [facility] [address] [facility] [place] [address] Basilio Fried, CABLE TELEVISION LINE TECHNICIAN 06/10/2025 7:30 AM ESTTreatment [facility] [address] [facility] [place] [place] [address] Basilio Fried, CABLE TELEVISION LINE TECHNICIAN 06/12/2025 8:00 AM ESTTreatment [facility] [address] [facility] [place] [place] [address] Basilio Fried, CABLE TELEVISION LINE TECHNICIAN 06/17/2025 7:30 AM ESTTreatment [facility] [address] [facility] [place] [address] Sourav Sharif, PT [address] [place] [address] documented as of this encounter Visit Diagnoses Not on filedocumented in this encounter Care Teams Team MemberRelationshipSpecialtyStart DateEnd Date Franklyn Jacobo DO [address] [place] [address] PCP - GeneralInternal Medicine03/24/25documented as of this encounter
--- OUTSIDE RECORDS SUMMARY | 2025-06-03 15:27 | XMS_ITS | Encounter Summary ---
Author Organization [facility] Address [address] [place] [address] Care Team Providers Care Tree Farmer Name Role Phone Franklyn Jacobo Primary Care Provider [phone] Encounter Details DateTypeDepartmentCare Team (Latest Contact Info)Twqbwmwrdwj69/26/2025Travel Social History Tobacco UseTypesPacks/DayYears UsedDateSmoking Tobacco: NeverSmokeless Tobacco: NeverAlcohol UseStandard Drinks/WeekCommentsDefer0 (1 standard drink = 0.6 oz pure alcohol)CommentsUnknownSex and Gender InformationValueDate Recorded Sex Assigned at BirthNot on fileLegal OqyJlydsn83/15/2023 7:40 PM EDTGender IdentityNot on fileSexual OrientationNot on filedocumented as of this encounter Plan of Treatment DateTypeDepartmentCare Team (Latest Contact Info)Wgtzysdnqil98/04/2025 4:00 PM ESTTreatment [facility] [address] [place] [address] Basilio Fried, CONTRACT ATTORNEY 06/10/2025 7:30 AM ESTTreatment [facility] [address] [place] [address] Basilio Fried, CONTRACT ATTORNEY 06/12/2025 8:00 AM ESTTreatment [facility] [address] [place] [address] Basilio Fried, CONTRACT ATTORNEY 06/17/2025 7:30 AM ESTTreatment [facility] [address] [place] [address] Sourav Sharif, PT [address] [place] [address] documented as of this encounter Visit Diagnoses Not on filedocumented in this encounter Care Teams Team MemberRelationshipSpecialtyStart DateEnd Date Franklyn Jacobo DO [address] [place] [address] PCP - GeneralInternal Medicine03/24/25documented as of this encounter
--- OUTSIDE RECORDS SUMMARY | 2025-06-03 15:27 | XMS_ITS | Encounter Summary ---
Author Organization [facility] Address [address] [place] [address] Care Team Providers Care Revenue Director Name Role Phone Franklyn Jacobo Primary Care Provider [phone] Encounter Details DateTypeDepartmentCare Team (Latest Contact Info)Suejptkzlou58/24/2025amboo flowsheet [facility] [address] [place] [address] Basilio Fried, TECHNICAL SERVICE ENGINEER Social History Tobacco UseTypesPacks/DayYears UsedDateSmoking Tobacco: NeverSmokeless Tobacco: NeverAlcohol UseStandard Drinks/WeekCommentsDefer0 (1 standard drink = 0.6 oz pure alcohol)CommentsUnknownSex and Gender InformationValueDate Recorded Sex Assigned at BirthNot on fileLegal TzgNzxxku27/15/2023 7:40 PM EDTGender IdentityNot on fileSexual OrientationNot on filedocumented as of this encounter Plan of Treatment DateTypeDepartmentCare Team (Latest Contact Info)Livffgpzcvr55/04/2025 4:00 PM ESTTreatment [facility] [address] [place] [address] Basilio Fried, VIRGINIE 06/10/2025 7:30 AM ESTTreatment [facility] [address] [place] [address] Basilio Fried, VIRGINIE 06/12/2025 8:00 AM ESTTreatment [facility] [address] [place] [address] Basilio Fried, VIRGINIE 06/17/2025 7:30 AM ESTTreatment [facility] [address] [facility] [place] [address] Sourav Sharif, PT [address] [place] [address] documented as of this encounter Visit Diagnoses Not on filedocumented in this encounter Care Teams Team MemberRelationshipSpecialtyStart DateEnd Date Franklyn Jacobo DO [address] [place] [address] PCP - GeneralInternal Medicine03/24/25documented as of this encounter
--- OUTSIDE RECORDS SUMMARY | 2025-06-03 15:27 | XMS_ITS | Encounter Summary ---
Author Organization [facility] Address [address] [place] [address] Care Team Providers Care Derrick Builder Name Role Phone Franklyn Jacobo Primary Care Provider [phone] Encounter Details DateTypeDepartmentCare Team (Latest Contact Info)Jvodyhrlfkt33/24/2025Travel Social History Tobacco UseTypesPacks/DayYears UsedDateSmoking Tobacco: NeverSmokeless Tobacco: NeverAlcohol UseStandard Drinks/WeekCommentsDefer0 (1 standard drink = 0.6 oz pure alcohol)CommentsUnknownSex and Gender InformationValueDate Recorded Sex Assigned at BirthNot on fileLegal MwfLplnmx76/15/2023 7:40 PM EDTGender IdentityNot on fileSexual OrientationNot on filedocumented as of this encounter Plan of Treatment DateTypeDepartmentCare Team (Latest Contact Info)Xklqqsxfksr14/04/2025 4:00 PM ESTTreatment [facility] [address] [place] [address] Basilio Fried, OPTICAL SCIENTIST 06/10/2025 7:30 AM ESTTreatment [facility] [address] [place] [address] Basilio Fried, OPTICAL SCIENTIST 06/12/2025 8:00 AM ESTTreatment [facility] [address] [place] [address] Basilio Fried, OPTICAL SCIENTIST 06/17/2025 7:30 AM ESTTreatment [facility] [address] [place] [address] Sourav Sharif, PT [address] [place] [address] documented as of this encounter Visit Diagnoses Not on filedocumented in this encounter Care Teams Team MemberRelationshipSpecialtyStart DateEnd Date Franklyn Jacobo DO [address] [place] [address] PCP - GeneralInternal Medicine03/24/25documented as of this encounter
--- OUTSIDE RECORDS SUMMARY | 2025-06-03 15:27 | XMS_ITS | Clinical Summary ---
Author Organization [facility] Address [address] [place] [address] Care Team Providers Care Door Hanger Name Role Phone Franklyn Jacobo Primary Care Provider [phone] Allergies No known active allergies Medications MedicationSigDispense QuantityRefillsLast FilledStart DateEnd DateStatus Multiple Vitamin (multivitamin) tablet Take 1 tablet by mouth DailyActive Estradiol (Estrace) 0.01 % cream Indications:Hormone disorderInsert 2 g into the vagina See administration instructions daily for 2 weeks, then 2 times weekly following initial 2 weeks. 42.5 g 5Active Active Problems ProblemNoted DateDiagnosed DateBilateral hip pain05/20/2025Lumbar radiculopathy 05/20/2025ppendicitis, acute04/22/2025 Encounters DateTypeDepartmentCare MovdNssboavwrih16/03/2025 8:30 AM ESTProcedure Visit [facility] [address] [place] [address] [place] [address] Abeba Kaiser PA Well woman exam with routine gynecological exam; Breast cancer screening by mammogram; Encounter for osteoporosis screening in asymptomatic postmenopausal patient; Encounter for screening for osteoporosis; Hormone xmscitpd48/02/2025 4:00 PM ESTTreatment [facility] [address] [place] [address] Sourav Sharif, PT Bilateral hip pain (Primary Dx); Lumbar paucqzisajfaa20/02/2025amboo flowsheet [facility] [address] [place] [address] Sourav Sharif, PT 06/02/20255226Jobhmj79/26/2025 3:00 PM ESTTreatment [facility] [address] [place] [address] Basilio Fried, UTILIZATION ENGINEER Bilateral hip pain (Primary Dx); Lumbar ohtagnloevypz19/26/2025amboo flowsheet [facility] [address] [place] [address] Basilio Fried, UTILIZATION ENGINEER 05/27/20254663Ceyosb97/24/2025 5:00 PM ESTTreatment [facility] [address] [place] [address] Corky Basilio, UTILIZATION ENGINEER Bilateral hip pain (Primary Dx); Lumbar tahjzgdxenngu43/24/2025amboo flowsheet [facility] [address] [place] [address] Basilio Fried, UTILIZATION ENGINEER 05/25/20251737Wakiug21/19/2025 7:30 AM ESTEvaluation [facility] [address] [place] [address] Sourav Sharif, PT Bilateral hip pain (Primary Dx); Lumbar maacjhnaxrwxi53/19/2025Plan of Care Documentation [facility] [address] [place] [address] 05/20/20251590Dhiqsc63/22/2025 10:30 AM EDTOffice Visit [facility] [address] [facility] [address] [place] [address] Emiliano Fairchild, DO Other acute appendicitis (Primary Dx)04/22/20253190Xbsfcj16/06/7088Hhcbap79/30/2025 1:45 PM EDTOffice Visit [facility] [address] [place] [address] [address] [place] [address] Emiliano Fairchild, DO Other acute appendicitis (Primary Dx)03/31/2025Telephone [facility] [address] [facility] [address] [place] [address] Emiliano Fairchild, DO 03/31/20251640Oetjov48/25/2025Orders Only [facility] [address] [facility] [address] [place] [address] Emiliano Fairchild, DO 03/26/20255688Qgmttk96/24/2025External Result Encounter [facility] External Department Unsolicited Emiliano Fairchild, DO 03/24/2025External Result Encounter [facility] External Department Unsolicited mEiliano Fairchild, DO from Last 3 Months Family History Medical HistoryRelationNameCommentsPulmonary fibrosisFatherHypertensionMother RelationNameStatusCommentsFatherDeceasedMotherDeceased Social History Tobacco UseTypesPacks/DayYears UsedDateSmoking Tobacco: NeverSmokeless Tobacco: Never Tobacco Cessation:Counseling Given: Not Answered Alcohol UseStandard Drinks/WeekCommentsDefer0 (1 standard drink = 0.6 oz pure alcohol)CommentsUnknownSex and Gender InformationValueDate RecordedSex Assigned at BirthNot on fileLegal SxwWwilyw68/15/2023 7:40 PM EDTGender Identity Not on fileSexual OrientationNot on file Last Filed Vital Signs Vital SignReadingTime TakenCommentsBlood Znsgamhm929/7206/03/2025 8:51 AM EST Pulse--Temperature--Respiratory Rate--Oxygen Saturation--Inhaled Oxygen Concentration--Rrbwmu96.2 kg (126 lb)06/03/2025 8:51 AM XDPGimcng346.6 cm (5' 4 )04/22/2025 10:29 AM EDTBody Mass Index21.6304/22/2025 10:29 AM EDT Plan of Treatment DateTypeDepartmentCare Team (Latest Contact Info)Wnyvpegehje20/04/2025 4:00 PM ESTTreatment [facility] [address] [place] [address] Basilio Fried, VIRGINIE 06/10/2025 7:30 AM ESTTreatment [facility] [address] [place] [address] Basilio Fried, UTILIZATION ENGINEER 06/12/2025 8:00 AM ESTTreatment [facility] [address] [place] [address] Basilio Fried, UTILIZATION ENGINEER 06/17/2025 7:30 AM ESTTreatment [facility] [address] [place] [address] Sourav Sahrif, PT [address] [facility] [place] [address] Health MaintenanceDue DateLast DoneCommentsCT Srczimbjhxug17/26/1963Colonoscopy 1962Colorectal Cancer Lnpeokvam63/26/1963FIT-DNA1962FIT1962 FOBT1962 7434Gkgvhsrzuhlfx62/26/3108Osyubkdza20/12/91409010/12/2023, 07/28/2014, 06/22/2014COVID-19 Vaccine ( season), 10/30/2020, 10/09/2020Influenza Vaccine (#1)2025HPV/Zibwyx49611Cervical Cancer Leoniziob97/17/2027Pap Smear, 10/17/2023, 05/23/2021 Pneumococcal Vaccine: Pediatrics (0 to 5 Years) and At-Risk Patients (6 to 64 Years)Aged OutNo longer eligible based on patient's age to complete this topic Procedures Procedure NamePriorityDate/TimeAssociated DiagnosisCommentsCBC WITH AUTO PVBDOANYMTWEGupoqiv62/24/2025 5:10 AM EDT CBC WITH AUTO DOMZCWTWFAMDLjuyfmo81/23/2025 6:46 AM EDT GENERAL PWTIKXTZTAmfpdwr26/22/2025 10:51 AM EDTfrom Last 3 Months Results * (ABNORMAL) CBC auto differential (03/25/2025 5:10 AM EDT) Only the most recent of2 resultswithin the time period is included. ComponentValueRef RangeTest MethodAnalysis TimePerformed AtPathologist Signature WBC7.83.8 - 11.6 [CFU]/mL03/25/2025 5:44 AM [facility] UNCORRECTED WHITE BLOOD COUNT7.83.8 - 11.6 10*3/uL03/25/2025 5:44 AM [facility] CtrRBC3.36(L)3.60 - 5.00 10*6/uL03/25/2025 5:44 AM [facility] UllNKGLKAATRM61.7(L)11.8 - 15.4 g/dL03/25/2025 5:44 AM [facility] VavRYOHVZXFVB17.5(L)34.0 - 46.4 % 03/25/2025 5:44 AM [facility] SnpGLJ76.980 - 100 fL03/25/2025 5:44 AM [facility] DwxGJF31.924.7 - 34.3 pg03/25/2025 5:44 AM [facility] GtiNEPT31.032.0 - 35.0 g/dL03/25/2025 5:44 AM [facility] CtrRED CELL DISTRIBUTION WIDTH, RDW13.411.9 - 15.3 %03/25/2025 5:44 AM [facility] CtrPLATELET ETWGM711275 - 450 10*3/uL03/25/2025 5:44 AM [facility] CtrMEAN PLATELET VOLUME, MPV8.46.3 - 10.7 fL03/25/2025 5:44 AM [facility] NEUTROPHILS, %69.9. %03/25/2025 5:44 AM [facility] LYMPHOCYTES, %21.4. %03/25/2025 5:44 AM [facility] MONOCYTE/MACROPHAGE, %7.9. %03/25/2025 5:44 AM [facility] EOSINOPHILS, %0.5. %03/25/2025 5:44 AM [facility] BASOPHILS, %0.3. %03/25/2025 5:44 AM [facility] CtrNRBC0.10 - 0.5 /100{WBC}03/25/2025 5:44 AM [facility] CtrNEUTROPHILS5.4 1.8 - 7.7 10*303/25/2025 5:44 AM [facility] CtrLYMPHOCYTES 1.71.00 - 4.8 10*303/25/2025 5:44 AM [facility] MONOCYTES0.60.0 - 0.8 10*303/25/2025 5:44 AM [facility] CtrEOSINOPHILS0.00.0 - 0.45 10*303/25/2025 5:44 AM [facility] CtrBASOPHILS0.00.0 - 0.2 10*303/25/2025 5:44 AM [facility] CtrSpecimen (Source)Anatomical Location / LateralityCollection Method / VolumeCollection TimeReceived TimeBlood (Blood)03/25/2025 5:10 AM EDT03/25/2025 5:35 AM EDT Narrative Authorizing ProviderResult TypeResult StatusPaul C Devorah DOLAB BLOOD ORDERABLES Final ResultPerforming OrganizationAddressCity/State/ZIP CodePhone Number [facility] [address] [place] [address], [facility] [address] [place] [address] * GENERAL PATHOLOGY (03/23/2025 10:51 AM EDT) Narrative Authorizing ProviderResult TypeResult StatusPaul C Laffay DOCLINISYNCFinal Result from Last 3 Months Insurance Care Teams Team MemberRelationshipSpecialtyStart DateEnd Date Franklyn Jacobo DO [address] [place] [address] PCP - GeneralInternal Medicine03/24/25
--- OUTSIDE RECORDS SUMMARY | 2025-06-03 15:27 | XMS_ITS | Encounter Summary ---
Author Organization [facility] Address [address] [place] [address] Care Team Providers Care Contact Lens Fitter Name Role Phone Franklyn Jacobo Primary Care Provider [phone] Encounter Details DateTypeDepartmentCare Team (Latest Contact Info)Zzspepcodqn55/02/2025amboo flowsheet [facility] [address] [place] [address] Sourav Sharif, PT [address] [place] [address] Social History Tobacco UseTypesPacks/DayYears UsedDateSmoking Tobacco: NeverSmokeless Tobacco: NeverAlcohol UseStandard Drinks/WeekCommentsDefer0 (1 standard drink = 0.6 oz pure alcohol)CommentsUnknownSex and Gender InformationValueDate Recorded Sex Assigned at BirthNot on fileLegal SezQsdpmc07/15/2023 7:40 PM EDTGender IdentityNot on fileSexual OrientationNot on filedocumented as of this encounter Plan of Treatment DateTypeDepartmentCare Team (Latest Contact Info)Fdejumsozny90/04/2025 4:00 PM ESTTreatment [facility] [address] [place] [address] Basilio Fried, SUBSTATION MECHANIC 06/10/2025 7:30 AM ESTTreatment [facility] [address] [place] [address] Basilio Fried, VIRGINIE 06/12/2025 8:00 AM ESTTreatment [facility] [address] [place] [address] Basilio Fried, VIRGINIE 06/17/2025 7:30 AM ESTTreatment [facility] [address] [place] [address] Sourav Sharif, PT [address] [place] [address] documented as of this encounter Visit Diagnoses Not on filedocumented in this encounter Care Teams Team MemberRelationshipSpecialtyStart DateEnd Date Franklyn Jacobo DO [address] [place] [address] PCP - GeneralInternal Medicine03/24/25documented as of this encounter
--- OUTSIDE RECORDS SUMMARY | 2025-06-03 15:27 | XMS_ITS | Clinical Summary ---
Author Organization [facility] Address [address], [address] [place] [address] Care Team Providers Care Screw Machine Set Up Operator Name Role Phone Franklyn Jacobo DO Primary Care Provider [phone] Allergies No known active allergies Medications No known medications Active Problems ProblemNoted DateDiagnosed WqqrMbeygktwtc74/10/2012 Family History Medical HistoryRelationNameCommentsSudden DeathBrotherHypertensionFatherHeart DiseaseMaternal GrandfatherSudden DeathMaternal GrandmotherCancerPaternal Grandfatherlung cancerCancerPaternal GrandmotherovarianRelationNameStatus CommentsBrotherDeceasedFatherAliveMaternal GrandfatherDeceasedMaternal GrandmotherDeceasedMotherAlivePaternal GrandfatherDeceasedPaternal Grandmother Social History Tobacco UseTypesPacks/DayYears UsedDateSmoking Tobacco: NeverSmokeless Tobacco: Never Tobacco Cessation:Counseling Given: Yes Alcohol UseStandard Drinks/WeekCommentsYes5 (1 standard drink = 0.6 oz pure alcohol)CommentsNoSex and Gender InformationValueDate RecordedSex Assigned at BirthNot on fileLegal KjiFkliqa47/10/2013 5:59 PM ESTGender Identity Not on fileSexual OrientationNot on file Last Filed Vital Signs Vital SignReadingTime TakenCommentsBlood Ghwhclol111/7211/ 9:49 AM EST Ftkzq8226 9:43 AM ESTTemperature--Respiratory Ugoo9296 9:43 AM ESTOxygen Saturation--Inhaled Oxygen Concentration--Cjzfhl57.4 kg (142 lb) 05/23/2021 9:49 AM FHOBxahum842 cm (5' 3 )05/23/2021 9:49 AM ESTBody Mass Index 25.15107/23/2020 9:49 AM EST Plan of Treatment Not on file Insurance Care Teams Team MemberRelationshipSpecialtyStart DateEnd Date Franklyn Jacobo DO [address] [place] [id number] [facility]11/13/13
== END 2025-06-03 15:22 | disposition home or self-care (01) ==
LOC: LAB 15:21
PROVIDERS: Visit Provider Physician Assistant
DX: Z01.419 Encounter for gynecological examination (general) (routine) without abnormal findings (principal)
CPT/HCPCS: 87624; 88175